=== PATIENT | female | born 1965 | race Caucasian/White ===

== ENCOUNTER → 2020-10-05 | Outpatient (CLI) | payer BC, OTHER ==
--- NOTE | 2020-10-07 13:34 | RAD ---
BILATERAL SCREENING MAMMOGRAM History: Routine screening. Comparison: 06/02/2018, 06/11/2019. Technique: Routine bilateral digital mammogram views were obtained. Findings: Breast Tissue Density B : There are scattered areas of fibroglandular density. There are no dominant masses, suspicious microcalcifications, or architectural distortion. IMPRESSION: No mammographic evidence of malignancy. Recommend routine screening. BI-RADS category 1: Negative. The images were reviewed with computer aided detection. Patient information is entered into the reminder system with a target due date for the next screening mammogram. Mammography is the most sensitive method for finding small breast cancers, but it does not detect them all and is not a substitute for careful clinical examination. A negative mammogram does not negate a clinically suspicious finding and should not result in delay in biopsying a clinically suspicious abnormality. "Our facility is accredited by the [employer] Mammography Program." Electronically signed by: Zaki Gonzales MD (10/07/2020 9:59 AM) [id number]
== END ==
LOC: MAMMO 11:03
PROVIDERS: ATTEND Physician Assistant
DX: Z12.31 Encounter for screening mammogram for malignant neoplasm of breast (principal)
CPT/HCPCS: 77067

== ENCOUNTER → 2021-11-20 | Outpatient (CLI) | payer BC ==
--- NOTE | 2021-11-20 15:29 | RAD ---
INDICATION : Routine Screening. COMPARISON: [facility] including May 2019 TECHNIQUE: Standard mammogram screening views of the bilateral breasts were obtained with 3D tomosynt hesis. CAD was utilized. FINDINGS: The breasts are scattered density. No definite suspicious mass. IMPRESSION: BI-RADS Category 1: Negative. Recommend repeat screening examination in one year. The patient was placed into the recall system with a suggested recall date for follow up imaging. Mammography is the most sensitive method for finding small breast cancers, but it does not detect the m all and is not a substitute for careful clinical examination. A negative mammogram does not negate a clinically suspicious finding and should not result in delay in biopsying a clinically suspicious abnormality. Electronically signed by: Austin Menezes MD (11/20/2021 3:26 PM) [id number]
== END ==
LOC: MAMMO 13:59
PROVIDERS: ATTEND Physician Assistant
DX: Z12.31 Encounter for screening mammogram for malignant neoplasm of breast (principal)
CPT/HCPCS: 77063; 77067